=== PATIENT | male | born 1965 | race Caucasian/White ===

== ENCOUNTER 2016-06-12 19:18 | Emergency (ER) ==
--- NOTE | 2016-06-12 19:35 | ED EKG INTERP ---
EKG Interpretation - EKG Time of EKG reading by physician:: 19:25 EKG Read and Signed by:: Ashwin Chung EKG Interpretation (*Must complete 3 of following elements*): Abnormal Rate: 72 Rhythm: normal sinus rhythm Comments: incomplete RBBB Attestation - Scribe Verification/Attestation Scribe:: Taylor Hutton Acting as Scribe for:: Ashwin Chung Scribe documention review:: This chart was documented by a scribe and accurately reflects the service the provider performed and the decisions made by the provider.
[2016-06-12] MEDS ORDERED: REGLAN PO ONE (19:59)
[2016-06-12] MEDS ORDERED: PEPCID PO ONE (19:59)
[2016-06-12 20:05] LABS: MANUAL DIFF NEEDED? NO
[2016-06-12 20:17] LABS: BASO% 0.5 % (0.0-0.8); EOS# 0.72 X1000 (0.0-0.7); EOS% 6.6 % (0.0-10.0); HEMATOCRIT 49.5 % (42.0-52.0); HEMOGLOBIN 16.7 g/dL (14.0-18.0); IMM GRAN# 0.04 X1000 (0.0-0.04); IMM GRAN% 0.4 % (0.0-0.5); LYMPH# 3.97 X1000 (1.2-3.4); LYMPH% 36.3 % (20.5-51.1); MCH 31.6 PG (27-31); MCHC 33.7 g/dL (33-37); MCV 93.8 FL (81-99); MONO# 0.82 X1000 (0.11-0.59); MONO% 7.5 % (1.7-9.3); MPV 10.3 FL (7.4-10.4); NEUT% 48.7 % (42.2-75.2); PLT 255 X1000 (130-400); RBC 5.28 XMIL (4.7-6.1)
--- NOTE | 2016-06-12 20:22 | PROVIDER DOCUMENTATION ---
HPI-Chest Pain - General Source: patient - History of Present Illness-CP Location: reports: other (L side) Chest Pain Radiation: reports: no radiation Quality of Pain: reports: aching Severity in ED: mild Onset/Duration: unsure Timing: intermittent, getting worse Context/Activities at Onset: reports: light activity Modifying Factors: improves with: nothing Associated Symptoms: reports: headache. denies: abdominal pain, back pain, diaphoresis, dizziness, edema, fatigue, fever/chills, heartburn, nausea, rash, shortness of breath, swelling/lump in chest, syncope, vomiting, weakness Nitro Today/Relief: no nitro taken today Aspirin Treatment Today: no aspirin today Prior Chest Pain/Cardiac Workup: reports: stress test Similar Symptoms Previously?: Yes Recently Seen Here or By Another Healthcare Provider: No <Taylor Hutton - Last Filed: 06/12/16 20:48> <Ashwin Chung - Last Filed: 06/12/16 20:53> - General Chief Complaint: Chest Pain Stated Complaint: CHEST PAIN,LIGHT HEADED Time Seen by Provider: 06/12/16 19:32 Allergies/Adverse Reactions: Patient Allergies Allergy/AdvReac Type Severity Reaction Status Date / Time No Known Allergies Allergy Verified 06/12/16 20:13 Home Medications: Home Medication List Medication Instructions Recorded Confirmed Last Taken Type Metoclopramide [Reglan] 10 mg PO AC + HS #90 tablet 06/12/16 Unknown Rx Omeprazole [Prilosec] 40 mg PO ACL #30 capsule. 06/12/16 Unknown Rx - History of Present Illness-CP Nature of Presenting Problem: Pt is 51 y/o M presents to the ED with L side chest pain. Pt states CP has been presents for weeks now. Pt states pain is intermittent and sharp. Pt states chest pain last 5 to 6 seconds about 10 times a day every day. Pt denies SOB. Pt states having a LARA. Pt states having a stress test done 5 years ago that was normal. (Taylor Hutton) Review of Systems - Adult - REVIEW OF SYSTEMS - ADULT Constitutional: denies: chills, fever Eyes: denies: blurred vision, double vision Ears, Nose, Mouth & Throat: denies: ear pain, nose pain, throat pain Cardiovascular: reports: chest pain. denies: heart murmur, irregular heart rate Respiratory: denies: cough, shortness of breath, wheezing Gastrointestinal: denies: abdominal pain, diarrhea, nausea, vomiting Genitourinary: denies: dysuria, hematuria Musculoskeletal: denies: bone pain, joint pain, neck pain Integumentary: denies: hives, itching Neurological: reports: headache/migraines (LARA). denies: dizziness/vertigo Psychiatric: reports: no symptoms reported Endocrine: reports: no symptoms reported Hematologic/Lymphatic: reports: no symptoms reported Allergic/Immunologic: reports: no symptoms reported All Other Systems: Reviewed and Negative <Taylor Hutton - Last Filed: 06/12/16 20:48> Past History - Adult - PAST MEDICAL HISTORY-ADULT Review of Records: reports: Nursing Assessment Review, Medications Reviewed, Social history reviewed & non-contributory. Major Childhood Illnesses: reports: denies history Cardiovascular: reports: denies history Respiratory: reports: denies history Gastrointestinal: reports: denies history Obstetrical/Gynecological: reports: denies history Genitourinary: reports: denies history Musculoskeletal: reports: denies history Neurological: reports: denies history Psychiatric: reports: other (panic attack ) Endocrine/Immune: reports: denies history Other Conditions: reports: denies history - PRIOR SURGERIES/PROCEDURES Surgical/Procedure History: reports: reviewed, not pertinent - IMMUNIZATION STATUS Childhood Immunizations: See Nurse Assessment Flu Vaccine: See Nurse Assessment - FAMILY HISTORY Family History: reviewed, not pertinent - SOCIAL HISTORY Smoking: cigarettes, less than 1 pack/day Provider spent 3-5 mins advising pt. on dangers of tobacco.: Discussed manners to quit use, and f/u contacts for add'l counseling. Substance Use: alcohol Alcohol Use Frequency: occasionally Number of drinks per typical drinking period:: 3-4 drinks Living Situation: family <Taylor Hutton - Last Filed: 06/12/16 20:48> Physical Exam-General - PHYSICAL EXAM-ADULT Initial Vital Signs Reviewed: Yes - CONSTITUTIONAL General Appearance: appears well, alert, no apparent distress - EYES Eyes: PERRL/EOMI, pink conjunctivae, fundi clear, no AV nicking - HEAD, EARS, NOSE, MOUTH & THROAT HENMT: normocephalic/atraumatic, moist mucous membranes, normal ENT inspection, TMs normal, pharynx normal - NECK Neck: non-tender, full range of motion, supple, normal inspection - RESPIRATORY Respiratory: chest non-tender, normal breath sounds, no pleuratic chest pain, no respiratory distress, no accessory muscle use, crackles (bilateral) - CARDIOVASCULAR Cardiovascular: normal peripheral pulses, regular rate, rhythm, no edema, no gallop, no JVD, systolic murmur - GASTROINTESTINAL (ABDOMEN) Abdominal Exam: normal bowel sounds, non tender, soft, no organomegaly, no pulsatile mass - LYMPHATIC Lymphatic: no adenopathy - MUSCULOSKELETAL Back Exam: normal inspection, no CVA tenderness, no vertebral tenderness Extremity: normal range of motion, non-tender, normal gait, normal inspection, no pedal edema, no calf tenderness, normal capillary refill - SKIN Integumentary: normal color, normal turgor, warm/dry - NEUROLOGIC Neurologic: grossly normal - PSYCHIATRIC Psych/Mental Status: normal mood/affect, oriented x 3 <Taylor Hutton - Last Filed: 06/12/16 20:48> Progress - XRAY 1 XRAY: Bilateral XRAY Study: Chest Impression: Normal XRAY Interpretation: negative per Dr. Chung <Taylor Hutton - Last Filed: 06/12/16 20:48> <Ashwin Chung - Last Filed: 06/12/16 20:53> - PLAN OF CARE/RESULTS Progress/Plan/Lab Results: Laboratory Tests 06/12/16 19:27 WBC 10.94 H RBC 5.28 Hgb 16.7 Hct 49.5 MCV 93.8 MCH 31.6 H MCHC 33.7 RDW Std Deviation 12.3 Plt Count 255 MPV 10.3 Immature Gran % (Auto) 0.4 Neut % (Auto) 48.7 Lymph % (Auto) 36.3 [place] % (Auto) 7.5 Eos % (Auto) 6.6 Baso % (Auto) 0.5 Immature Gran # (Auto) 0.04 Neut # (Auto) 5.34 Lymph # (Auto) 3.[address] [place] # (Auto) 0.82 H Eos # (Auto) 0.72 H Baso # (Auto) 0.05 Orders Category Date Time Status CHEST-2 VIEWS [RAD] Stat Exams 06/12/16 19:58 Ordered CBC WITH DIFF [HEME] Stat Lab 06/12/16 19:27 Completed COMPREHENSIVE METABOLIC PANEL [CHEM] Stat Lab 06/12/16 19:[address] Re[address] D-D[address]ER [address] [COAG] Stat Lab 06/12/16 19:27 Received LIPASE [CHEM] Stat Lab 06/12/16 19:27 Received TROPONIN T Stat Lab 06/12/16 19:27 Received Famotidine [Pepcid] Med 06/12/16 19:59 Discontinued 40 mg PO NOW ONE Metoclopramide [Reglan] Med 06/12/16 19:59 Discontinued 10 mg PO NOW ONE EKG [EKG] Stat Ther 06/12/16 19:40 Ordered Vital Signs - 24 hr 06/12/16 06/12/16 19:23 20:12 Temperature 97.5 F L Pulse Rate 67 68 Respiratory 19 15 Rate Blood Pressure 142/085 130/83 O2 Sat by Pulse 99 98 Oximetry Laboratory Tests 06/12/16 06/12/16 06/12/16 19:27 19:27 19:27 WBC RBC Hgb Hct MCV MCH MCHC RDW Std Deviation Plt Count MPV Immature Gran % (Auto) Neut % (Auto) Lymph % (Auto) [place] % (Auto) Eos % (Auto) Baso % (Auto) Immature Gran # (Auto) Neut # (Auto) Lymph # (Auto) [place] # (Auto) Eos # (Auto) Baso # (Auto) D-Dimer < 0.22 L Sodium 136 Potassium 3.6 Chloride 102 Carbon Dioxide 25 Anion Gap 9 BUN 13 Creatinine 0.7 Estimated GFR/1.73 m2 > 60 BUN/Creatinine Ratio 19 Glucose 92 Calculated Osmolality 272 Calcium 9.5 Total Bilirubin 0.20 AST 17 ALT 10 Alkaline Phosphatase 62 Troponin T < 0.010 Total Protein 7.2 Albumin 4.3 Globulin 3.0 Albumin/Globulin Ratio 1.0 Lipase 24 06/12/16 19:27 WBC 10.94 H RBC 5.28 Hgb 16.7 Hct 49.5 MCV 93.8 MCH 31.6 H MCHC 33.7 RDW Std Deviation 12.3 Plt Count 255 MPV 10.3 Immature Gran % (Auto) 0.4 Neut % (Auto) 48.7 Lymph % (Auto) 36.3 [place] % (Auto) 7.5 Eos % (Auto) 6.6 Baso % (Auto) 0.5 Immature Gran # (Auto) 0.04 Neut # (Auto) 5.34 Lymph # (Auto) 3.[address] # (Auto) 0.82 H Eos # (Auto) 0.72 H Baso # (Auto) 0.05 D-Dimer Sodium Potassium Chloride Carbon Dioxide Anion Gap BUN Creatinine Estimated GFR/1.73 m2 BUN/Creatinine Ratio Glucose Calculated Osmolality Calcium Total Bilirubin AST ALT Alkaline Phosphatase Troponin T Total Protein Albumin Globulin Albumin/Globulin Ratio Lipase (Taylor Hutton) Departure - Departure Time of Disposition Order: 20:48 Certified Medical Emergency: Emergent <Taylor Hutton - Last Filed: 06/12/16 20:48> - Departure Time of Disposition Order: 20:45 Certified Medical Emergency: Emergent <Ashwin Chung - Last Filed: 06/12/16 20:53> - Departure DIAGNOSIS: Acid reflux Qualifiers: Esophagitis presence: esophagitis presence not specified Qualified Code(s): K21.9 - Gastro-esophageal reflux disease without esophagitis Disposition: HOME 01 Condition: Fair Additional Instructions: FOLLOW UP WITH [employer] [employer] MACHINE OPERATOR MEDICAL DOCTOR OR CALL HEALTHCARE TECHNICIAN and CLINICAL DATA ASSISTANT FOR FURTHER WORK-UP TAKE ZANTAC 150mg BEFORE BED EACH NIGHT CALL [facility] RE PERSONALITY CHANGES Prescriptions: Omeprazole [Prilosec] 40 mg PO ACL #30 capsule. Metoclopramide [Reglan] 10 mg PO AC + HS #90 tablet Referrals: Raquel Justin MD [STAFF PHYSICIAN] - Tin Leal MD [STAFF PHYSICIAN] - Jim Valencia MD [STAFF PHYSICIAN] - None,PCP [Primary Care Provider] - Attestation - Scribe Verification/Attestation Scribe:: Taylor Hutton Acting as Scribe for:: Ashwin Chung Scribe documention review:: This chart was documented by a scribe and accurately reflects the service the provider performed and the decisions made by the provider. <Taylor Hutton - Last Filed: 06/12/16 20:48> Physician Attestation
[2016-06-12 20:36] LABS: AGAP 9; ALBUMIN 4.3 g/dL (3.5-5.0); ALKALINE PHOSPHATASE 62 U/L (32-122); BUN 13 mg/dL (8-22); CALCIUM 9.5 mg/dL (8.8-10.2); CHLORIDE 102 mmol/L (98-107); COSMO 272; GOT 17 U/L (10-34); GPT 10 U/L (10-44); LIPASE 24 U/L (13-60); POTASSIUM 3.6 mmol/L (3.5-5.1); SODIUM 136 mmol/L (136-145); TCO2 25 mmol/L (25-35); TOTAL PROTEIN 7.2 g/dL (6.3-8.3)
[2016-06-12 20:56] VITALS: BP 135/88
--- NOTE | 2016-06-13 01:54 | EKG Report ---
Test Performed on : 06/12/2016 7:25:28 PM Test Reason : chest pain Blood Pressure : / mmHG Vent. Rate : 072 BPM Atrial Rate : 072 BPM P-R Int : 142 ms QRS Dur : 100 ms QT Int : 378 ms P-R-T Axes : 069 -20 063 degrees QTc Int : 413 ms Normal sinus rhythm. Incomplete right bundle branch block Borderline ECG No previous ECGs available Unconfirmed Result
--- NOTE | 2016-06-13 06:38 | Diag Imaging Result Document ---
PROCEDURE NAME: CHEST-2 VIEWS - 06/12/2016 FRONTAL AND LATERAL CHEST, TWO VIEWS: FINDINGS: The lungs are well expanded. The heart is not enlarged. The vessels are not distended. No pneumonia. No pleural effusions. There is a granuloma in the mid left lung. No free air beneath the diaphragm. IMPRESSION: No acute abnormality although the patient may have emphysema.
== END 2016-06-12 21:09 | disposition home or self-care (01) ==
LOC: P.ED 19:18
DX: K21.9 Gastro-esophageal reflux disease without esophagitis (principal); R07.89 Other chest pain; R51 Headache; R42 Dizziness and giddiness; F17.210 Nicotine dependence, cigarettes, uncomplicated; Z71.6 Tobacco abuse counseling
CPT/HCPCS: 71020; 80053; 83690; 84484; 85025; 85379; 93005; 99284